=== PATIENT | female | born 1955 | race Caucasian/White ===

== ENCOUNTER 2022-11-21 15:01 | Emergency (ER) | payer OTHER ==
--- OUTSIDE RECORDS SUMMARY | 2022-11-21 15:04 | XMS REPORT | Continuity of Care Document ---
:1955 Author Organization [facility] Address [address] [place] [id number] Care Team Providers Name Role Phone [email or web address]_Alden_J Attending Clinician Unavailable GC_MAXIMINO_Alden_J Attending Clinician Unavailable [email or web address]_Alden_J Admitting Clinician Unavailable MAX_[email or web address]_J Admitting Clinician Unavailable Payers Payer Name Policy Type Policy Number Effective Date Expiration Date [employer] [id number] (MEDICARE REPLACEMENT/[employer] GE - PPO) MEDICARE B-[place]: [id number] 2021 Applicasa 00:00:00 AETNA [id number] Problems Condition Condition Condition Status Onset Resolution Last Treating Co mments Source Name Details Category Date Date Treatment Clinician Date 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 Clinician (SIG) Name Name celecoxib celecoxib No celecoxib [facility] 200 mg 200 mg 200 mg Medical capsule capsule capsule clotrimazol clotrimazol No clotrimazo [facility] e 1 % e 1 % le 1 % Medical vaginal vaginal vaginal cream cream cream INSERT ONE INSERT ONE INSERT ONE APPLICATORF APPLICATORF APPLICATOR UL UL FUL VAGINALLY VAGINALLY VAGINALLY AT BEDTIME AT BEDTIME AT BEDTIME EVERY NIGHT EVERY NIGHT EVERY AT BEDTIME AT BEDTIME NIGHT AT BEDTIME cyclobenzap cyclobenzap No cyclobenza [facility] rine 5 mg rine 5 mg rosemary 5 mg Medical tablet TAKE tablet TAKE tablet 1 TABLET BY 1 TABLET BY TAKE 1 MOUTH THREE MOUTH THREE TABLET BY TIMES DAILY TIMES DAILY MOUTH NEEDED NEEDED THREE FOR MUSCLE FOR MUSCLE TIMES SPASM SPASM DAILY NEEDED FOR MUSCLE SPASM Eliquis 5 Eliquis 5 No Eliquis 5 [facility] mg tablet mg tablet mg tablet Medical TAKE 1 TAKE 1 TAKE 1 TABLET BY TABLET BY TABLET BY MOUTH TWICE MOUTH TWICE MOUTH DAILY DAILY TWICE DAILY Eliquis Eliquis No Eliquis [facility] DVT-PE DVT-PE DVT-PE Medical Treatment Treatment Treatment 30-Day 30-Day 30-Day Starter 5 Starter 5 Starter 5 mg (74 mg (74 mg (74 tablets) in tablets) in tablets) dose pack dose pack in dose FOLLOW FOLLOW pack PACKAGE PACKAGE FOLLOW DIRECTIONS DIRECTIONS PACKAGE DIRECTIONS ergocalcife ergocalcife No ergocalcif [facility] rol rol pantera Medical (vitamin (vitamin (vitamin D2) 1,250 D2) 1,250 D2) 1,250 mcg (50,000 mcg (50,000 mcg unit) unit) (50,000 capsule capsule unit) TAKE 1 TAKE 1 capsule CAPSULE BY CAPSULE BY TAKE 1 MOUTH EVERY MOUTH EVERY CAPSULE BY WEEK ON THE WEEK ON THE MOUTH SAME DAY SAME DAY EVERY WEEK ON THE SAME DAY gabapentin gabapentin No gabapentin [facility] 100 mg 100 mg 100 mg Medical capsule capsule capsule TAKE 1 TAKE 1 TAKE 1 CAPSULE BY CAPSULE BY CAPSULE BY MOUTH TWICE MOUTH TWICE MOUTH DAILY DAILY TWICE DAILY meloxicam meloxicam No meloxicam [facility] 7.5 mg 7.5 mg 7.5 mg Medical tablet TAKE tablet TAKE tablet 1 TABLET BY 1 TABLET BY TAKE 1 MOUTH EVERY MOUTH EVERY TABLET BY DAY DAY MOUTH NEEDED FOR NEEDED FOR EVERY DAY PAIN PAIN NEEDED FOR PAIN nitrofurant nitrofurant No nitrofuran [facility] oin oin toin Medical monohydrate monohydrate monohydrat /macrocryst /macrocryst e/macrocry als 100 mg als 100 mg stals 100 capsule capsule mg capsule TAKE 1 TAKE 1 TAKE 1 CAPSULE BY CAPSULE BY CAPSULE BY MOUTH TWICE MOUTH TWICE MOUTH DAILY DAILY TWICE DAILY ofloxacin ofloxacin No ofloxacin [facility] 0.3 % eye 0.3 % eye 0.3 % eye Medical drops drops drops omeprazole omeprazole No omeprazole [facility] 40 mg 40 mg 40 mg Medical capsule,del capsule,del capsule,de ayed ayed layed release release release TAKE 1 TAKE 1 TAKE 1 CAPSULE BY CAPSULE BY CAPSULE BY MOUTH EVERY MOUTH EVERY MOUTH DAY DAY EVERY DAY phenazopyri phenazopyri No phenazopyr [facility] dine 200 mg dine 200 mg idine 200 Medical tablet TAKE tablet TAKE mg tablet 1 TABLET BY 1 TABLET BY TAKE 1 MOUTH THREE MOUTH THREE TABLET BY TIMES DAILY TIMES DAILY MOUTH THREE TIMES DAILY prednisolon prednisolon No prednisolo [facility] e acetate 1 e acetate 1 ne acetate Medical % eye % eye 1 % eye drops,suspe drops,suspe drops,susp nsion nsion ension INSTILL 1 INSTILL 1 INSTILL 1 DROP INTO DROP INTO DROP INTO LEFT EYE LEFT EYE LEFT EYE THREE TIMES THREE TIMES THREE DAILY FOR 1 DAILY FOR 1 TIMES WEEK THEN WEEK THEN DAILY FOR TWICE DAILY TWICE DAILY 1 WEEK FOR 1 WEEK FOR 1 WEEK THEN TWICE THEN EVERY THEN EVERY DAILY FOR DAY FOR 2 DAY FOR 2 1 WEEK WEEKS WEEKS THEN EVERY DAY FOR 2 WEEKS rabeprazole rabeprazole No rabeprazol [facility] 20 mg 20 mg e 20 mg Medical tablet,nico tablet,nico tablet,del yed release yed release ayed release sucralfate sucralfate No sucralfate [facility] 100 mg/mL 100 mg/mL 100 mg/mL Medical oral oral oral suspension suspension suspension SHAKE WELL SHAKE WELL SHAKE WELL AND TAKE 10 AND TAKE 10 AND TAKE ML BY MOUTH ML BY MOUTH 10 ML BY FOUR TIMES FOUR TIMES MOUTH FOUR DAILY DAILY TIMES BEFORE BEFORE DAILY MEALS MEALS BEFORE MEALS sulfamethox sulfamethox No sulfametho [facility] azole 800 azole 800 xazole 800 Medical mg-trimetho mg-trimetho mg-trimeth prim 160 mg prim 160 mg oprim 160 tablet TAKE tablet TAKE mg tablet 1 TABLET BY 1 TABLET BY TAKE 1 MOUTH TWICE MOUTH TWICE TABLET BY DAILY FOR 7 DAILY FOR 7 MOUTH DAYS DAYS TWICE DAILY FOR 7 DAYS tinidazole tinidazole No 4 Q1D tinidazole [facility] 500 mg 500 mg 500 mg Medical tablet Take tablet Take tablet 4 tablets 4 tablets Take 4 every day every day tablets by oral by oral every day route for 2 route for 2 by oral days. days. route for 2 days. tramadol 50 tramadol 50 No tramadol [facility] mg tablet mg tablet 50 mg Medi garcía TAKE 1 TAKE 1 tablet TABLET BY TABLET BY TAKE 1 MOUTH EVERY MOUTH EVERY TABLET BY 6 HOURS 6 HOURS MOUTH NEEDED NEEDED EVERY 6 HOURS NEEDED Immunizations Ordered Immunization Filled Immunization Date Status Commen ts Source Name Name influenza, influenza, 2017-03-24 Completed [facility] unspecified unspecified 00:00:00 formulation formulation Vital Signs Vital Name Observation Time Observation Value Comments Source BP Diastolic 2022-09-08 00:00:00 74 mm[Hg] [facility] Height 2022-09-08 00:00:00 69 [in_i] [facility] BMI (Body Mass Index) 2022-09-08 00:00:00 21.6 kg/m2 [facility] BP Systolic 2022-09-08 00:00:00 122 mm[Hg] [facility] Body Weight 2022-09-08 00:00:00 146 [lb_av] [facility] Procedures Procedure Date / Time Performed Performing Clinician [facility] e Cholecystectomy 2012-04-14 00:00:00 [facility] (Gallbladder) Back / Spine Surgery 1992-06-15 00:00:00 [facility] Plan of Care Planned Activity Planned Date Details Comments Source Diagnostic Test 2022-09-08 00:00:00 Malonate [facility] Pending [Mass/volume] in Serum [code = 2603-9] Diagnostic Test 2022-09-08 00:00:00 unlisted lab [code = [facility] Pending unlisted lab] Encounters Start End Encounter Admission Attending Care Care Encounter Source Date/Time Date/Time Type Type Clinicians Facility Department ID 2022-09-08 2022-09-08 [facility]:00 00:00:00 [facility] NEPTALI Mobley_ : [address] [place], [address], [place] [address] , Ph. 2022-09-07 2022-09-07 Outpatient GC_SWHAOMC_ PRIV PRIV [id number] [facility] 00:00:00 00:00:00 Rebeca [id number] Medic al 2022-09-07 2022-09-07 Outpatient GC_SWHAOMC_ PRIV PRIV [id number] [facility] 00:00:00 00:00:00 Rebeca [id number] Medic al 2022-09-05 2022-09-05 Outpatient GC_SWHATBIC PRIV PRIV [id number] [facility] 00:00:00 00:00:00 _Alden_Cy [id number] [facility] 2022-09-03 2022-09-03 Outpatient GC_SWHATBIC PRIV PRIV [id number] [facility] 00:00:00 00:00:00 _Alden_Cy [id number] [facility] 2022-08-14 2022-08-14 Outpatient GC_SWHAOMC_ PRIV PRIV [id number] [facility] 00:00:00 00:00:00 Cooper_J [id number] Medic al 2021-11-04 2021-11-04 Outpatient GC_SWHAOMC_ PRIV PRIV [id number] [facility] 05:40:00 05:40:00 Alden_Cy [id number] Medic al 2021-10-30 2021-10-30 Outpatient GC_SWHAOMC_ PRIV PRIV [id number] [facility] 12:51:00 12:51:00 Alden_Cy [id number] Medic al 2021-10-14 2021-10-14 Outpatient GC_SWHAOMC_ PRIV PRIV [id number] [facility] 01:59:00 01:59:00 Cooper_J [id number] Medic al 2021-05-27 2021-05-27 Outpatient GC_SWHATBIC PRIV PRIV [id number] [facility] 04:53:00 04:53:00 _Alden_Cy [id number] [facility] 2021-05-24 2021-05-24 Outpatient GC_SWHATBIC PRIV PRIV [id number] [facility] 01:16:00 01:16:00 _Cooper_J [id number] [facility] 2017-08-15 2017-08-15 Outpatient GC_SWHAOMC_ PRIV PRIV [id number] [facility] 05:01:00 05:01:00 Alden_J [id number] Medic al Results This patient has no known results.
[2022-11-21] MEDS ORDERED: MORPHINE 4 MG/ML SYR ONE ×3 (16:12→20:29)
[2022-11-21 16:19] LABS: Absolute Lymphocytes (CBC) 0.8 K/uL (0.7-4.9); Hematocrit 30.8 % (36.0-45.0); Lymphocytes % 2.6 % (15.3-44.8); MCV 91.2 fL (80-100); MPV 8.4 fL (7.6-11.3); RBC Red Blood Cell Count 3.38 M/uL (3.86-4.86)
[2022-11-21] MEDS ORDERED: ONDANSETRON 4 MG/2 ML VIAL ONE (16:19)
[2022-11-21 16:34] LABS: Albumin 2.6 g/dL (3.4-5.0); Bilirubin Total 0.7 mg/dL (0.2-1.0); Potassium 3.9 mEq/L (3.5-5.1); Protein, Total 7.5 g/dL (6.4-8.2)
--- NOTE | 2022-11-21 16:46 | EDPHYS ---
Physician Documentation [facility] Name: Christianne Jacobson Age: 67 yrs Sex: Female : 1955 Arrival Date: 11/21/2022 Time: 15:01 Bed 16 Private MD: ED Physician Deon Quintero HPI: 11/21 16:02 This 67 yrs old Female presents to ER via Wheelchair with complaints of Abdominal Pain, ms3 Vaginal Bleeding. 16:02 67-year-old female with past medical history of DVT presents for abdominal pain that ms3 has been ongoing for 3 to 4 months. Patient states she is also [facility] and vaginal bleeding. Patient states she began vomiting last night. Patient states her abdominal pain is a 10/10 located in the lower abdomen. Patient denies alleviating or inciting factors. Historical: - Allergies: 15:08 PENICILLINS; ld1 - Home Meds: 15:08 Eliquis 5 mg oral tablet 2 times per day [Active]; ld1 - PMHx: 15:08 DVT; ld1 - PSHx: 15:08 Cholecystectomy; ld1 - Immunization history:: Adult Immunizations up to date, Client reports receiving the 2nd dose of the Covid vaccine. - Social history:: Smoking status: Patient denies any tobacco usage or history of. Patient/guardian denies using alcohol. ROS: 16:02 Constitutional: Negative for fever, and chills. Eyes: Negative for injury, pain, ms3 redness, and discharge, Neck: Negative for injury, pain, and swelling, Cardiovascular: Negative for chest pain, and palpitations. Respiratory: Negative for shortness of breath, cough, wheezing, and pleuritic chest pain. 16:02 MS/Extremity: Negative for injury and deformity, Skin: Negative for injury, rash, and discoloration. 16:02 Abdomen/GI: Positive for abdominal pain, nausea, vomiting, and diarrhea. 16:02 All other systems are negative. Exam: 16:02 Constitutional: This is a well developed, well nourished patient who is awake, alert, ms3 and in no acute distress. Head/Face: Normocephalic, atraumatic. Neck: Trachea midline, no cervical lymphadenopathy. Supple, full range of motion without nuchal rigidity, or vertebral point tenderness. No Meningismus. Chest/axilla: Normal chest wall appearance and motion. Nontender with no deformity. Cardiovascular: Regular rate and rhythm with a normal S1 and S2. No gallops, murmurs, or rubs. Normal PMI, no JVD. No pulse deficits. Respiratory: Lungs have equal breath sounds bilaterally, clear to auscultation and percussion. No rales, rhonchi or wheezes noted. No increased work of breathing, no retractions or nasal flaring. 16:02 Abdomen/GI: Inspection: abdomen appears normal, Bowel sounds: normal, in all quadrants, Palpation: moderate abdominal tenderness, in the right lower quadrant and left lower quadrant. 18:52 ECG was reviewed by the Attending Physician. ms3 Vital Signs: 15:08 Pulse 95; Resp 22; Temp 98.2(TE); Pulse Ox 98% on R/A; Weight 58.97 kg; Height 5 ft. 9 ld1 in. ; Pain 10/10; 15:12 BP 250 / 239; ld1 16:00 BP 115 / 59; Pulse 106; Resp 20; Temp 99.9(T); Pulse Ox 98% on R/A; ko1 16:15 BP 113 / 68; Pulse 110; Resp 22; Pulse Ox 99% ; ko1 16:30 BP 105 / 63; Pulse 108; Resp 19; Pulse Ox 97% ; ko1 16:45 BP 108 / 68; Pulse 116; Resp 24; Pulse Ox 98% ; ko1 17:30 BP 112 / 97; Pulse 108; Resp 26; Pulse Ox 100% ; ko1 19:30 BP 105 / 70; Pulse 108; Resp 21 S; Temp 99.1(O); Pulse Ox 100% on R/A; ha1 20:42 BP 104 / 56; Pulse 106; Resp 21 S; Pulse Ox 97% ; ha1 15:08 Body Mass Index 19.20 (58.97 kg, 175.26 cm) ld1 15:08 Pain Scale: Adult ld1 MDM: 15:12 Patient medically screened. ms3 16:02 Differential diagnosis: Neoplasm nonspecific abdominal pain, Diverticulitis. ms3 16:43 ED course: Patient with elevated WBC and LA >4. No source of infection at this time.. ms3 18:27 Management of patient was discussed with the following: Roll Forming Machine Set Up Mechanic: Ricardo Rivas. ED ms3 course: Discussed case with Ricardo Rivas and he will consult on patient.. 18:35 Data reviewed: vital signs, nurses notes, lab test result(s), radiologic studies, and ms3 as a result, I will transfer. Consideration of Admission/Observation Patient transferred. I considered the following discharge prescriptions or medication management in the emergency department Medications were administered in the Emergency Department. See MAR. Independent interpretation of the following test(s) in the Emergency Department CT Scan: My interpretation is CTA Abd/Pelvis images reviewed by me do not show occlusion or free air. Historians other than the Patient: Patient's niece. Counseling: I had a detailed discussion with the patient and/or guardian regarding: the historical points, exam findings, and any diagnostic results supporting the discharge/admit diagnosis, lab results, radiology results, the need to transfer to another facility. Response to treatment: the patient's symptoms have mildly improved after treatment, and as a result, I will transfer patient. 18:47 Management of patient was discussed with the following: Hospitalist: Discussed case ms3 with Dr Barajas and she accepts patient to IMU. 11/21 15:21 Order name: Urinalysis w/ reflexes ms3 11/21 16:24 Order name: CBC with Automated Diff; Complete Time: 17:32 EDMS 11/21 16:25 Order name: Comprehensive Metabolic Panel; Complete Time: 16:43 EDMS 11/21 16:25 Order name: Lipase; Complete Time: 16:43 EDMS 11/21 16:25 Order name: Lactate w/ 2H reflex if indic.; Complete Time: 16:43 EDMS 11/21 16:46 Order name: Blood Culture Adult (2) ms3 11/21 16:46 Order name: Protime (+inr); Complete Time: 18:26 ms3 11/21 16:46 Order name: Ptt, Activated; Complete Time: 18:26 ms3 11/21 17:07 Order name: Manual Differential; Complete Time: 17:32 EDMS 11/21 18:48 Order name: Urine Culture EDMS 11/21 16:51 Order name: Pelvis Complete; Complete Time: 17:59 EDMS 11/21 16:56 Order name: CT Abdomen - Angio: CTA abdomen and pelvis; Complete Time: 18:10 ms3 11/21 17:04 Order name: Pelvis Angio; Complete Time: 17:59 EDMS 11/21 16:46 Order name: EKG; Complete Time: 16:56 ms3 11/21 15:21 Order name: IV Saline Lock; Complete Time: 16:12 ms3 11/21 15:21 Order name: Labs collected and sent; Complete Time: 16:12 ms3 11/21 16:46 Order name: Accucheck; Complete Time: 16:58 ms3 11/21 16:46 Order name: Cardiac monitoring; Complete Time: 16:55 ms3 11/21 16:46 Order name: EKG - Nurse/Tech; Complete Time: 18:12 ms3 11/21 16:46 Order name: IV Saline Lock - Large Bore; Complete Time: 16:55 ms3 11/21 16:46 Order name: O2 Per Protocol; Complete Time: 16:55 ms3 11/21 16:46 Order name: O2 Sat Monitoring; Complete Time: 16:55 ms3 11/21 16:46 Order name: Vital Signs; Complete Time: 16:55 ms3 11/21 17:53 Order name: Labs - recollect needed: BLUE TOP only; Complete Time: 18:42 ss EC:52 Rate is 101 beats/min. Rhythm is regular. QRS [place] is Normal. [place] interval is normal. ms3 QRS interval is normal. Clinical impression: Sinus tachycardia. Interpreted by me. Reviewed by me. Administered Medications: 16:16 Drug: morphine IVP or IV 4 mg Route: IVP; Infused Over: 4 mins; Site: left forearm; ko1 18:55 Follow up: Response: No adverse reaction ko1 17:26 Drug: Lactated Ringers Solution IV 1000 ml Route: IV; Rate: bolus; Site: left forearm; ko1 18:11 Drug: Cefepime IVPB 1 grams Route: IVPB; Rate: 200 ml/hr; Infused Over: 30 mins; Site: ko1 left forearm; 18:45 Follow up: IV Status: Completed infusion; IV Intake: 100ml ko1 18:43 Drug: vancoMYCIN IVPB 1 grams Route: IVPB; Infused Over: 2 hrs; Site: left forearm; ko1 20:31 Drug: morphine IVP or IV 4 mg Route: IVP; Infused Over: 4 mins; Site: left forearm; ha1 20:42 Follow up: Response: No adverse reaction; Pain is decreased; RASS: Alert and Calm (0) ha1 Disposition Summary: 11/21/22 16:46 Transfer Ordered Transfer Location: Other Acute Care Facility ms3 Reason: Higher level of care ms3 Condition: Stable ms3 Problem: new ms3 Symptoms: are unchanged ms3 Accepting Physician: (11/21/22 20:44) ha1 Diagnosis - Abdominal pain, Generalized ms3 Forms: - Medication Reconciliation Form ms3 - SBAR form ms3 Signatures: Dispatcher [employer] EDMS Darian Mooney, LUIS PA eviem Anneliese Garcia, RN RN ss Angel Flor, POWER LINE INSTALLER-C POWER LINE INSTALLER-Cla1 Deon Quintero, DO DO ms3 Vicenta Quintero RN RN ld1 Carli Almanzar RN RN ha1 Christiana Almanzar, RN RN ko1 Corrections: (The following items were deleted from the chart) 16:58 16:33 Abdomen ordered. EDMS EDMS 17:00 16:54 Pelvis Complete+US.RAD.BRZ ordered. EDMS EDMS 17:04 16:53 Abdomen Pelvis W Con+CT.RAD.BRZ ordered. EDMS EDMS 18:43 16:53 CBC+H.LAB.BRZ ordered. EDMS EDMS 18:43 16:53 COMPREHENSIVE METABOLIC PANEL+C.LAB.BRZ ordered. EDMS EDMS 18:43 16:53 LIPASE+C.LAB.BRZ ordered. EDMS EDMS 18:43 16:54 LACTATE+C.LAB.BRZ ordered. EDMS EDMS 20:44 16:46 ms3 ha1
--- NOTE | 2022-11-21 16:46 | ER ---
Nurse's Notes [facility] Name: Christianne Jacobson Age: 67 yrs Sex: Female : 1955 Arrival Date: 11/21/2022 Time: 15:01 Bed 16 Private MD: Diagnosis: Abdominal pain, Generalized Presentation: 11/21 15:08 Chief complaint: Patient states: Constipation, vaginal bleeding, abdominal pain, ld1 vomiting X 1 day. Coronavirus screen: At this time, the client does not indicate any symptoms associated with coronavirus-19. Ebola Screen: No symptoms or risks identified at this time. Initial Sepsis Screen: Does the patient meet any 2 criteria? No. Patient's initial sepsis screen is negative. Does the patient have a suspected source of infection? No. Patient's initial sepsis screen is negative. Risk Assessment: Do you want to hurt yourself or someone else? Patient reports no desire to harm self or others. Onset of symptoms was November 21, 2022. 15:08 Method Of Arrival: Wheelchair ld1 15:08 Acuity: NISH 3 ld1 Triage Assessment: 15:08 General: Appears in no apparent distress. uncomfortable, Behavior is cooperative, ld1 anxious. Pain: Complains of pain in left lower quadrant Pain does not radiate. Pain currently is 10 out of 10 on a pain scale. Quality of pain is described as throbbing. EENT: No signs and/or symptoms were reported regarding the EENT system. Neuro: Level of Consciousness is awake, alert, obeys commands, Oriented to person, place, time, situation. Cardiovascular: Capillary refill < 3 seconds Patient's skin is warm and dry. Respiratory: Airway is patent Respiratory effort is even, labored. GI: Abdomen is flat, non-distended, Reports lower abdominal pain, nausea, vomiting. GI: Reports constipation. : No signs and/or symptoms were reported regarding the genitourinary system. Derm: No signs and/or symptoms reported regarding the dermatologic system. Musculoskeletal: No signs and/or symptoms reported regarding the musculoskeletal system. Historical: - Allergies: 15:08 PENICILLINS; ld1 - Home Meds: 15:08 Eliquis 5 mg oral tablet 2 times per day [Active]; ld1 - PMHx: 15:08 DVT; ld1 - PSHx: 15:08 Cholecystectomy; ld1 - Immunization history:: Adult Immunizations up to date, Client reports receiving the 2nd dose of the Covid vaccine. - Social history:: Smoking status: Patient denies any tobacco usage or history of. Patient/guardian denies using alcohol. Screenin:30 [facility] ED Fall Risk Assessment (Adult) History of falling in the last 3 months, ko1 including since admission No falls in past 3 months (0 pts) Confusion or Disorientation No (0 pts) Intoxicated or Sedated No (0 pts) Impaired Gait No (0 pts) Mobility Assist Device Used No (0 pt) Altered Elimination No (0 pt) Score/Fall Risk Level 0 - 2 = Low Risk Oriented to surroundings, Maintained a safe environment, Educated pt \T\ family on fall prevention, incl call for assistance when getting out of bed, Assessed \T\ reinforced patient's understanding of fall precautions, Provided non-skid footwear, Hourly rounding (assess needs \T\ fall precautionary measures) done, Used ambulatory aids as needed (educated on \T\ assisted with), Used gait belt as appropriate. Abuse screen: Denies threats or abuse. Denies injuries from another. Nutritional screening: No deficits noted. Tuberculosis screening: No symptoms or risk factors identified. Assessment: 16:00 General: Appears distressed, uncomfortable, ill, Behavior is cooperative, appropriate ko1 for age, anxious, restless. Pain: Complains of pain in lumbar area, left low back and right low back. Neuro: No deficits noted. Cardiovascular: No deficits noted. Respiratory: Respiratory effort is labored, Respiratory pattern is tachypnea. GI: Bowel sounds present X 4 quads. Abd is soft and non tender X 4 quads. : No deficits noted. EENT: No deficits noted. Derm: No deficits noted. Musculoskeletal: No deficits noted. 19:20 General: Appears uncomfortable, Behavior is anxious. Pain: Complains of pain in abdomen ha1 Pain does not radiate. Pain currently is 8 out of 10 on a pain scale. Quality of pain is described as crampy. Neuro: Level of Consciousness is awake, alert, obeys commands, Oriented to person, place, time, situation. Respiratory: Respiratory effort is even, labored, Respiratory pattern is regular, tachypnea. GI: Bowel sounds present X 4 quads. Abd is soft Abdomen is tender to palpation X 4 quads. Reports lower abdominal pain. Musculoskeletal: Circulation, motion, and sensation intact. 20:00 Reassessment: Patient and/or family updated on plan of care and expected duration. Pain ha1 level reassessed. awaiting on EMS. requesting pain medication. Notified Dr. Blum. pain 01/22. 20:18 Reassessment: report given to KALEY Plummer. ha1 Vital Signs: 15:08 Pulse 95; Resp 22; Temp 98.2(TE); Pulse Ox 98% on R/A; Weight 58.97 kg; Height 5 ft. 9 ld1 in. ; Pain 03/24; 15:12 BP 250 / 239; ld1 16:00 BP 115 / 59; Pulse 106; Resp 20; Temp 99.9(T); Pulse Ox 98% on R/A; ko1 16:15 BP 113 / 68; Pulse 110; Resp 22; Pulse Ox 99% ; ko1 16:30 BP 105 / 63; Pulse 108; Resp 19; Pulse Ox 97% ; ko1 16:45 BP 108 / 68; Pulse 116; Resp 24; Pulse Ox 98% ; ko1 17:30 BP 112 / 97; Pulse 108; Resp 26; Pulse Ox 100% ; ko1 19:30 BP 105 / 70; Pulse 108; Resp 21 S; Temp 99.1(O); Pulse Ox 100% on R/A; ha1 20:42 BP 104 / 56; Pulse 106; Resp 21 S; Pulse Ox 97% ; ha1 15:08 Body Mass Index 19.20 (58.97 kg, 175.26 cm) ld1 15:08 Pain Scale: Adult ld1 ED Course: 15:03 Patient arrived in ED. im 15:08 Arm band placed on right wrist. ld1 15:11 Triage completed. ld1 15:12 Deon Quintero DO is Attending Physician. ms3 16:00 Christiana Almanzar, KALEY is Primary Nurse. ko1 16:12 Inserted saline lock: 20 gauge in left forearm, using aseptic technique. Blood zm collected. 16:12 Initial lab(s) drawn, by me, sent to lab. zm 16:33 Lipase Sent. ko1 16:33 Lactate w/ 2H reflex if indic. Sent. ko1 16:33 Comprehensive Metabolic Panel Sent. ko1 17:16 CT Abdomen - Angio: CTA abdomen and pelvis In Process Unspecified. EDMS 17:16 Pelvis Angio In Process Unspecified. EDMS 17:30 Patient has correct armband on for positive identification. Placed in gown. Bed in low ko1 position. Call light in reach. Side rails up X2. Client placed on continuous cardiac and pulse oximetry monitoring. NIBP monitoring applied. thermodynamicist on. Door closed. Noise minimized. Lights dimmed. Warm blanket given. 17:32 Pelvis Complete In Process Unspecified. EDMS 18:05 Blood Culture Adult (2) Sent. ko1 18:05 Protime (+inr) Sent. ko1 18:05 Ptt, Activated Sent. ko1 18:08 initiated transfer with Bob Desir from the [facility]. eb 18:21 EKG done, by ED staff. aw1 18:[address] Reji Alexandre with the [employer] oncologist styrene dehydration reactor operator for [facility] with eb Dr. Quintero for patient transfer consultation. 18:43 Urinalysis w/ reflexes Sent. ko1 18:55 Urine Culture Sent. ko1 20:42 No provider procedures requiring assistance completed. Patient transferred, IV remains ha1 in place. Administered Medications: 16:16 Drug: morphine IVP or IV 4 mg Route: IVP; Infused Over: 4 mins; Site: left forearm; ko1 18:55 Follow up: Response: No adverse reaction ko1 17:26 Drug: Lactated Ringers Solution IV 1000 ml Route: IV; Rate: bolus; Site: left forearm; ko1 18:11 Drug: Cefepime IVPB 1 grams Route: IVPB; Rate: 200 ml/hr; Infused Over: 30 mins; Site: ko1 left forearm; 18:45 Follow up: IV Status: Completed infusion; IV Intake: 100ml ko1 18:43 Drug: vancoMYCIN IVPB 1 grams Route: IVPB; Infused Over: 2 hrs; Site: left forearm; ko1 20:31 Drug: morphine IVP or IV 4 mg Route: IVP; Infused Over: 4 mins; Site: left forearm; ha1 20:42 Follow up: Response: No adverse reaction; Pain is decreased; RASS: Alert and Calm (0) ha1 Medication: 17:30 VIS not applicable for this client. ko1 Intake: 18:45 IV: 100ml; Total: 100ml. ko1 Outcome: 16:46 ER care complete, transfer ordered by . ms3 20:43 Transferred by ground EMS to [facility], [facility] [place]: transferred by [facility] ambulance 20:43 Condition: stable 20:44 Patient left the ED. ha1 Signatures: Dispatcher [employer] EDMS Kayla Flynn, Deon, DO ms3 Vicenta Quintero, RN RN ld1 Teena Sharma Heidy, RN RN ha1 Christiana Almanzar RN RN ko1 Ellie Kaur, [place] aw1 Corrections: (The following items were deleted from the chart) 18:43 16:55 CBC+H.LAB.BRZ drawn and sent. ko1 EDMS 18:43 16:55 COMPREHENSIVE METABOLIC PANEL+C.LAB.BRZ drawn and sent. ko EDMS 18:43 16:55 LIPASE+C.LAB.BRZ drawn and sent. ko EDMS 18:43 16:55 LACTATE+C.LAB.BRZ drawn and sent. ko EDMS 18:43 17:05 CBC+H.LAB.BRZ drawn and sent. ko1 EDMS 18:43 17:05 COMPREHENSIVE METABOLIC PANEL+C.LAB.BRZ drawn and sent. ko1 EDMS 18:43 17:05 LIPASE+C.LAB.BRZ drawn and sent. ko1 EDMS 18:43 17:05 LACTATE+C.LAB.BRZ drawn and sent. ko EDMS
[2022-11-21 17:06] LABS: Blood Morphology Comment NOT SEEN (NOT SEEN); Platelet Estimate ADEQ
[2022-11-21] MEDS ORDERED: Ringers Lactate 1,000 ML IV ONE (17:14)
--- NOTE | 2022-11-21 17:35 | RAD REPORT ---
EXAM DESCRIPTION: CTAbdomen Angio11/21/2022 5:14 pm CLINICAL HISTORY: Abdominal pain COMPARISON: None TECHNIQUE: 95 cc Isovue [address] angiogram of the abdomen obtained. 3D MIP reconstruction performed All CT scans are performed using dose optimization technique as appropriate and may include automated exposure control or mA/KV adjustment according to patient size. FINDINGS: Mild calcified plaque celiac artery. Superior mesenteric artery normal VIVIANA normal Minimal calcified plaque abdominal aorta Renal arteries normal Marked left hydronephrosis. Marked dilatation proximal and mid left ureter. Moderate compression deformity T12 vertebral body probably chronic IMPRESSION: Mild calcified plaque celiac artery not significant Marked left hydronephrosis. Marked dilatation proximal and mid left ureter. Three for [address] ang iogram report for distal left ureter findings
--- NOTE | 2022-11-21 17:44 | RAD REPORT ---
EXAM DESCRIPTION: CTPelvis Angio11/21/2022 5:14 pm CLINICAL HISTORY: Abdominal pain COMPARISON: None TECHNIQUE: Ninety-five cc Isovue [address] angiogram of the pelvis obta ined. 3D MIP reconstruction performed All CT scans are performed using dose optimization technique as appropriate and may include automated exposure control or mA/KV adjustment according to patient size. FINDINGS: Common iliac, internal and external iliac and visualized femoral arteries bilaterally nor mal. Marked dilatation distal left ureter. There is an abrupt transition of caliber as the ureter abuts th e left aspect of the cervix. The cervix is inhomogeneous and enlarged. It contains several air bubbles. The endometrial stripe is thickened containing fluid. Left ovary is partially calcified measuring 2.7 centimeters. Trace amount of free fluid. IMPRESSION: Pelvic arteries normal Marked dilatation of the left ureter. There is an abrupt transition of caliber as the ureter abuts th e left aspect of the cervix. The cervix is enlarged and inhomogeneous. Neoplasm is suspected. There may be extension into the uter us. Superior aspect of the vagina is also inhomogeneous which may indicate tumor extension Partially calcified left ovary presumably benign. This should be monitored on subsequent exam
--- NOTE | 2022-11-21 17:47 | RAD REPORT ---
EXAM DESCRIPTION: US - Pelvis Complete - 11/21/2022 5:31 pm CLINICAL HISTORY: Abdominal pain. Vaginal bleeding FINDINGS: The uterus measures 10 x 5 x 7 centimeters. The endometrial stripe is thickened measuring 11 millimeters. It is heterogeneous. The cervix is enlarged and inhomogeneous. It contains small amount of air. Left ovary measures 2.7 centimeters and is partially calcified. Right ovary not seen. Right adnexal are unremarkable. No significant fluid IMPRESSION: Cervix is enlarged and inhomogeneous which may indicate neoplasm. Endometrial stripe is thickened and heterogeneous which may indicate tumor extension into the uterus.
[2022-11-21] MEDS ORDERED: NA CHLORIDE 0.9% 250 ML ONE (18:00)
[2022-11-21] MEDS ORDERED: VANCOMYCIN 1 GM/VIAL ONE (18:00)
[2022-11-21] MEDS ORDERED: NA CHLORIDE 0.9% 100 ML ONE (18:01)
[2022-11-21] MEDS ORDERED: CEFEPIME 1 GM/VIAL ONE (18:01)
[2022-11-21 18:16] LABS: Specific Gravity > 1.030 (1.005-1.030); Urine Bacteria None Seen /HPF (<20); Urine Bilirubin NEGATIVE (Negative); Urine Blood 3+ (Negative); Urine Clarity Turbid (Clear); Urine Color Yellow (Yellow); Urine Glucose NEGATIVE (Negative); Urine Mucus Slight /HPF (None Seen); Urine Protein 1+ (Negative); Urine RBC 21-50 /HPF (None Seen); Urine Urobilinogen Normal (Normal); Urine WBC Clump Rare /HPF (None Seen); Urine pH 6.5 (5.0-7.0)
[2022-11-21 18:20] LABS: Protime INR 1.57
[2022-11-21 21:15] VITALS: TEMP 99.1
[2022-11-21 21:17] VITALS: BP 104/56; O2SAT 97
--- NOTE | 2022-11-24 12:09 | EKG ---
Test Date: 2022-11-21 Test Time: 18:17:04 Retirement Specialist: RUDY MEASUREMENT RESULTS: Intervals: Rate: 101 AK: 118 QRSD: 72 QT: 448 QTc: 580 [place]: P: 15 AK: 118 QRS: 77 T: 79 INTERPRETIVE STATEMENTS: Sinus tachycardia Otherwise normal ECG No previous ECG available for comparison Electronically Signed On 11-24-22 12:01:23 CDT by Hosea Ovalle
== END 2022-11-21 20:44 ==
LOC: ER 15:01
DX: R10.84 Generalized abdominal pain (principal); R11.2 Nausea with vomiting, unspecified; Z86.718 Personal history of other venous thrombosis and embolism; Z79.01 Long term (current) use of anticoagulants
CPT/HCPCS: 96365; 93005; 87040 ×2; 87088; 85025; 81001; 87086; 36415; 87205 ×2; 85610; 83605; 85730; 83690; 80053; 72191; 74175; 76856; 96375; 99285; Q9967; J2405; J7120; J7050; J0692

== ENCOUNTER 2024-06-03 17:53 | Inpatient (IN) | payer OTHER ==
--- OUTSIDE RECORDS SUMMARY | 2024-06-03 17:57 | XMS REPORT | Clinical Summary ---
Author Name Unknown Organization [facility] Address [address] [place] [address] Care Team Providers Care Olive Knocker Name Role Phone Ana Munoz MD Primary Care Provider Kaylen Atkins PLAY WRITER Unavailable [phone] Reji Alexandre MD Unavailable Carleen Cuello RN Unavailable [phone] Mateus Reyes MD Primary Care Provider [phone] Haim Man RN Unavailable [phone] Diana Joe RN Unavailable Allergies Active Allergy Reactions Criticality Noted Date Comments Penicillins Swelling,Rash Low 03/07/2024 Medications apixaban (ELIQUIS) 5 mg tablet Take 1 tablet (5 mg) by mouth. 4 Active Bifidobacterium infantis (ALIGN ORAL) Align Active gabapentin (NEURONTIN) 300 mg capsule Take 1 capsule (300 mg) by mouth. 4 Active cranberry fruit concentrate (AZO CRANBERRY ORAL) Take by mouth. Active multivitamin with minerals tablet Take by mouth. Activ e ergocalciferol (DRISDOL) 50,000 units capsule TAKE 1 CAPSULE BY MOUTH EVERY WEEK ON THE SAME DAY Active lidocaine-priloc mary jo (EMLA) 2.5-2.5% cream Apply topically to affected area(s). 4 02/11/20 25 Active magnesium oxide (MAOX) 400 mg tablet Take 1 tablet (400 mg) by mouth as needed. Active ondansetron (ZOFRAN) 8 mg tablet Take 1 tablet (8 mg) by mouth. 4 02/11/20 25 Active omeprazole (PriLOSEC) 40 MG capsule as needed. Active acetaminophen (TYLENOL) 500 mg tablet Take 2 tablets (1,000 mg) by mouth. Active calcium carbonate (OS-IZABEL) 600 mg calcium (1,500 mg) tablet Take 1 tablet (600 mg) by mouth. Active Active Problems Problem Noted Date Diagnosed Date Squamous cell carcinoma of cervix 03/07/2024 Cancer Staging:Clinical stage from 12/09/2022:Stage IIIB(Recurrent) - Signed by Rosalia Callahan APRN on 03/07/2024 Assessment & Plan (03/07/2024 3:06 PM CDT): Dr. Reyes discussed the pathology, natural history of disease process, prognosis, and treatment options. Recommended adding Bevacizumab to current regimen. Treatment recommendation sheet provided. She will return after 3 cycles for treatment planning with imaging. Baseline labs today. Secondary malignant neoplasm of lung 03/07/2024 Encounters Date Type Department Care Team Description 04/14/2024 Telephone [facility] [address] [place] [address] [address] [place] [address] Diana Joe, RN Nurse Navigation 03/10/2024 Telephone [facility] [address] [place] [address], 6th [place] [address] Diana Joe, RN post first visit call 03/08/2024 Telephone [facility] [address] [place] [address] [place] [address] Michelle Senior RN Follow-up 03/07/2024 2:00 PM CDT - 03/07/2024 11:59 PM CDT Hospital Encounter [facility] [address] [place] [address], 8th [place] [address] Mateus Reyes MD Kochuponganal, Jyothi A, RN Discharge Disposition: Home 03/07/2024 1:15 PM CDT - 03/07/2024 1:59 PM CDT Hospital Encounter Diagnostic Laboratory Center [address] [place] [address] Rosalia CallahanZAID Squamous cell carcinoma of cervix Discharge Disposition: Home 03/07/2024 11:00 AM CDT Office Visit [facility] [address] [place] [address] [place] [address] Mateus Reyes MD Squamous cell carcinoma of cervix (Primary Dx); Secondary malignant neoplasm of unspecified lung 03/07/2024 Travel 03/02/2024 Telephone [facility] [address] [place] [address] Haim Man RN Nurse Navigation (Plan for the day) 02/29/2024 1:00 PM CDT [facility] PATIENT ACCESS Ana Munoz MD 02/03/2024 Telephone [facility] [address] [place] [address] Haim Man RN New Patient 02/01/2024 Telephone [facility] [address] [place] [address] Carleen Cuello RN Follow-up (2nd attempt to reach out to patient /) 02/01/2024 Lab Requisition [facility] Frank Case MD Masand, Ramya Prakash, MD 01/29/2024 Telephone [facility] [address] [place] [address] Carleen Cuello, KALEY New Patient 01/28/2024 9:25 PM CDT Ancillary [facility] [address] [place] [address] Ana Munoz MD Cancer 01/28/2024 9:20 PM CDT Anc[facility] [address] [place] [address] Ana Munoz MD Cancer 01/28/2024 9:15 PM CDT Anc[facility] [address] [place] [address] Ana Munoz MD Cancer 01/28/2024 9:10 PM CDT Anc[facility] [address] [place] [address] Ana Munoz MD Cancer 01/28/2024 9:05 PM CDT Ancillary Procedure [facility] [address] [place] [address] Ana Munoz MD Cancer 01/28/2024 9:00 PM CDT Anc[facility] [address] [place] [address] Ana Munoz MD Cancer 01/28/2024 8:55 PM CDT Anc[facility] [address] [place] [address] Ana Munoz MD Cancer 01/28/2024 8:50 PM CDT Anc[facility] [address] [place] [address] Ana Munoz MD Cancer 01/28/2024 8:45 PM CDT Anc[facility] [address] [place] [address] Ana Munoz MD Cancer 01/28/2024 8:40 PM CDT Anc[facility] [address] [place] [address] Ana Munoz MD Cancer 01/28/2024 8:35 PM CDT [facility] [address] [place] [address] Ana Munoz MD Cancer 01/28/2024 8:30 PM CDT Anc[facility] [address] [place] [address] Ana Munoz MD Cancer 01/28/2024 8:25 PM CDT Anc[facility] [address] [place] [address] Ana Munoz MD Cancer 01/28/2024 8:20 PM CDT Anc[facility] [address] [place] [address] Ana Munoz MD Cancer 01/28/2024 8:15 PM CDT Ancillary [facility] [address] [place] [address] Ana Munoz MD Cancer 01/28/2024 8:10 PM CDT Ancillary [facility] [address] [place] [address] Ana Munoz MD Cancer 01/28/2024 8:05 PM CDT Ancillary [facility] [address] [place] [address] Ana Munoz MD Cancer 01/28/2024 8:00 PM CDT Ancillary Procedure [facility] [address] [place] [address] Ana Munoz MD Cancer after 06/04/2023 Surgical History Surgery Date Site/Laterality Comments BACK SURGERY 06/15/1992 - 06/14/1993 LAPAROSCOPIC CHOLECYSTECOMY 06/15/2011 - 06/14/2012 EYE SURGERY 06/15/2021 - 06/14/2022 FLEXIBLE SIGMOIDOSCOPY 12/13/2022 - 01/12/2023 Medical History Medical History Date Comments Neuropathy Pulmonary embolism 2010 Cervical cancer Gluten intolerance Osteopenia Deep venous thrombosis 2022 Family History Medical History Relation Name Comments Breast cancer Cousin Pancreatic cancer Maternal Cousin Lung cancer Maternal Uncle Relation Name Status Comments Cousin Maternal Cousin Maternal Uncle Social History Tobacco Use Types Packs/Day Years Used Date Smoking Tobacco: Never Smokeless Tobacco: Never Tobacco Cessation:Counseling Given: Not Answered Alcohol Use Standard Drinks/Week Comments Not Currently 0 (1 standard drink = 0.6 oz pur e alcohol) Comments No Sex and Gender Information Value Date Recorded Sex Assigned at Not on file Legal Sex Female 10:39 AM CDT Gender Identity Not on file Sexual Orientation Not on file Obstetrics History Para Term AB IAB SAB Ectopic Multiple Livin g Live Births 0 0 0 0 0 0 0 0 0 0 0 Comments Age at Menarche 14 Age at menopause 56 H/O OCP use - none H/O HRT use - none H/O STD - none Age at parity - n/a H/O breast feeding - n/a H/O infertility treatment - no Last pap smear - 08/2022 normal H/O abnormal pap smear - no Last mammogram - 2019 normal Last bone density - 07/2022 osteopenia Last colonoscopy - 2013 normal Last Filed Vital Signs Vital Sign Reading Time Taken Comments Blood Pressure 99/61 03/07/2024 11:21 AM CDT Pulse 93 03/07/2024 11:21 AM CDT Temperature 36.5 C (97.7 F) 03/07/2024 11:20 AM C DT Respiratory Rate 16 03/07/2024 11:21 AM CDT Oxygen Saturation 98% 03/07/2024 11:20 AM CDT Inhaled Oxygen Concentration - - Weight 73.3 kg (161 lb 9.6 oz) 03/07/2024 11:04 AM CDT Height 171 cm (5' 7.32") 03/07/2024 11:04 AM CDT Body Mass Index 25.07 03/07/2024 11:04 AM CDT Plan of Treatment Health Maintenance Due Date Last Done Comments Pneumococcal Vaccine: 65+ Years (1 of 1 - PCV) COVID-19 Vaccine (2 - season) 02/14/202404/2023 Influenza Vaccine (#1) 2024 03/24/2017 Procedures Procedure Name Priority Date/Time Associated Diagnosis Comments .CBC Routine 03/07/2024 1:48 PM CDT Squamous cell carcinoma of cervix ALBUMIN LEVEL Routine 03/07/2024 1:48 PM CDT Squamous cell carcinoma of cervix COMPLETE BLOOD COUNT W/ DIFFERENTIAL Routine 03/07/2024 1:48 PM CDT Squamous cell carcinoma of cervix MAGNESIUM LEVEL Routine 03/07/2024 1:48 PM CDT Squamous cell carcinoma of cervix ELECTROLYTE PANEL Routine 03/07/2024 1:4 8 PM CDT Squamous cell carcinoma of cervix ASPARTATE AMINOTRANSFERASE Routine 03/07/2024 1:48 PM CDT Squamous cell carcinoma of cervix ALANINE AMINOTRANSFERASE Routine 024 1:48 PM CDT Squamous cell carcinoma of cervix FRACTIONATED BILIRUBIN Routine 1:48 PM CDT Squamous cell carcinoma of cervix CREATININE Routine 03/07/2024 1:48 PM CDT Squamous cell carcinoma of cervix BLOOD UREA NITROGEN Routine 03/07/2024 1 :48 PM CDT Squamous cell carcinoma of cervix GLUCOSE, RANDOM Routine 03/07/2024 1:48 PM CDT Squamous cell carcinoma of cervix HEMOGLOBIN A1C Routine 03/07/2024 1:48 PM CDT Squamous cell carcinoma of cervix HIV 1/2 ANTIGEN/ANTIBODY, FOURTH GEN W/RFL Routine 03/07/2024 1:48 PM CDT Squamous cell carcinoma of cervix HEPATITIS B SURFACE ANTIGEN Routine 03/07/2024 1:48 PM CDT Squamous cell carcinoma of cervix HEPATITIS C VIRUS ANTIBODY Routine 03/07/2024 1:48 PM CDT Squamous cell carcinoma of cervix OSI PET CT SKULL TO MID THIGH Routine 01/15/2024 10:28 AM CDT Cancer OSI CT ABDOMEN AND PELVIS Routine 11/23/2023 10:27 AM CDT Cancer OSI NUCLEAR DIAGNOSTIC EXAM Routine 11/23/2023 10:27 AM CDT Cancer OSI INTERVENTIONAL Routine 09/30/2023 10 :27 AM CDT Cancer OSI CT ABDOMEN AND PELVIS Routine 07/22/2023 10:27 AM [employer] Cancer OSI INTERVENTIONAL Routine 2023 10 :27 AM [employer] Cancer OSI US VASCULAR Routine 07/03/2023 10:27 AM [employer] Cancer OSI MRI PELVIS Routine 06/17/2023 10:26 AM [employer] Cancer OSI PET CT SKULL TO MID THIGH Routine 06/05/2023 10:26 AM [employer] Cancer after 06/04/2023 Results * Glucose, Random (03/07/2024 1:48 PM CDT) Glucose Random 105 70 - 199 mg/dL 03/07/2024 2:31 PM CDT [facility] Blood Peripheral blood specimen / Unknown Venipuncture / Unknown 03/07/2024 1:48 PM CDT 03/07/2024 1:57 PM CDT Narrative [facility] - 03/07/2024 2:31 PM CDT Effective 01/09/16, the glucose reference intervals have been updated based on [place] [employer] Diabetes Association guidelines (Standards of Medical Care in Diabetes 2016. Diabetes Care 2016; 39: S13-S22). Fasting blood glucose: Normal: 70-99 mg/dL Impaired fasting glucose (increased risk for diabetes or pre-diabetes): 100-125 mg/dL Diabetes mellitus: >/=126 mg/dL Random blood glucose: Normal: 70-199 mg/dL Note: Random glucose >100 mg/dL is associated with increased risk for diabetes us Rosalia Callahan APRN LAB BLOOD ORDERABLES Final R esult [facility] [address] [place] [address] * HIV 1/2 Antigen/Antibody, Fourth Gen W/RFL (03/07/2024 1:48 PM CDT) HIV Ag/Ab, 4TH Gen NON-REACT LOVE NON-REACT LOVE 03/08/2024 4:57 PM CDT [facility]) Comment: HIV-1 antigen and HIV-1/HIV-2 antibodies were not detected. There is no laboratory evidence of HIV infection. PLEASE NOTE: This information has been disclosed to you from records whose confidentiality may be protected by state law. If your state requires such protection, then the state law prohibits you from making any further disclosure of the information without the specific written consent of the person to whom it pertains, or as otherwise permitted by law. A general authorization for the release of medical or other information is NOT sufficient for this purpose. For additional information please refer to http://education.Klooff/faq/OHX739 (This link is being provided for informational/ educational purposes only.) The performance of this assay has not been clinically validated in patients less than 2 years old. Blood Peripheral blood specimen / Unknown Venipuncture / Unknown 03/07/2024 1:48 PM CDT 03/07/2024 1:57 PM CDT Narrative [facility] ([facility]) - 03/08/2024 4:57 PM CDT Performing Organization Information: [facility] [address] [place] [id number] Marianne Asif us Rosalia Callahan APRN LAB BLOOD ORDERABLES Final R esult [facility]) * (ABNORMAL) .CBC (03/07/2024 1:48 PM CDT) Pathologist [facility] White Blood Cell 4.4 4.1 - 10.5 K/uL 03/07/2024 2:41 PM CDT [facility] Red Blood Cell 3.79(L) 3.99 - 5.46 M/uL 03/07/2024 2:41 PM CDT [facility] Hemoglobin 12.2 12.2 - 15.3 g/dL 03/07/2024 2:41 PM CDT [facility] Hematocrit 36.8 36.4 - 46.8 % 03/07/2024 2:41 PM CDT [facility] Mean Cell Volume 97 82 - 99 fL 03/07/2024 2:41 PM [facility] Mean Cell Hemoglobin 32.2 26.6 - 33.2 pg 03/07/2024 2:41 PM [facility] Mean Cell Hemoglobin Concentration 33.2 31.1 - 35.2 g/dL 03/07/2024 2:41 PM [facility] RDW-SD 48.0 37.5 - 49.7 fL 03/07/2024 2:41 PM [facility] Red Cell Diameter Width 13.4 11.6 - 15.5 % 03/07/2024 2:41 PM [facility] Platelet 134(L) 160 - 397 K/uL 03/07/2024 2:41 PM [facility] Mean Platelet Volume 03/07/2024 2:41 PM [facility] Comment:Result Not Measured INRBC 0.0 0.0 - 0.1 /100 WBC 03/07/2024 2:41 PM [facility] Comment: The INRBC (instrument NRBC) value reflects the enumeration of nucleated red blood cells contained in a 200uL sample of whole blood analyzed by the instrument. This value may differ from the NRBC value reported in a manual differential, which is based on a 100 cell differential. Neutrophil % 82.5(H) 43.2 - 72.7 % 03/07/2024 2:41 PM [facility] Lymphocyte % 12.0(L) 16.8 - 46.2 % 03/07/2024 2:41 PM [facility] Monocyte % 2.1(L) 5.1 - 12.5 % 03/07/2024 2:41 PM [facility] Eosinophil % 1.1 0.4 - 6.3 % 03/07/2024 2:41 PM [facility] Basophil % 0.9 0.2 - 1.4 % 03/07/2024 2:41 PM [facility] IGRE % 1.4 0.1 - 1.5 % 03/07/2024 2:41 PM [facility] Comment:The IGRE% includes M etamyelocytes, Myelocytes and Promyelocytes. Neutrophil Abs 3.59 1.95 - 7.25 K/uL 03/07/2024 2:41 PM CDT [facility] Lymphocyte Abs 0.52(L) 1.01 - 3.24 K/uL 03/07/2024 2:41 PM T [facility] Monocyte Abs 0.09(L) 0.24 - 0.85 K/uL 03/07/2024 2:41 PM CDT [facility] Eosinophil Abs 0.05 0.02 - 0.50 K/uL 03/07/2024 2:41 PM T [facility] Basophil Abs 0.04 0.02 - 0.09 K/uL 03/07/2024 2:41 PM T [facility] IG Abs 0.06 0.01 - 0.12 K/uL 03/07/2024 2:41 PM T [facility] Blood Peripheral blood specimen / Unknown Venipuncture / Unknown 03/07/2024 1:48 PM CDT 03/07/2024 1:57 PM CDT us Rosalia Callahan [employer]PER[employer]PER[employer] LAB BLOOD ORDERABLES Final R esult [facility] [address] [place] [address] * Fractionated Bilirubin (03/07/2024 1:48 PM CDT) Bilirubin Direct <0.2 0.0 - 0.3 mg/dL 03/07/2024 2:31 PM [facility] Comment:Indocyanine Green (I CG) may cause falsely elevated bilirubin results. Total and direct bilirubin must not be measured from samples containing indocyanine green. Bilirubin Indirect 2023 2:31 PM [facility] Comment:Unable to calculate Indirect Bilirubin result due to some parameters are outside reportable range Bilirubin Total 0.3 0.0 - 1.2 mg/dL 03/07/2024 2:31 PM T [facility] Comment:Indocyanine Green (I CG) may cause falsely elevated bilirubin results. Total and direct bilirubin must not be measured from samples containing indocyanine green. False elevation of total bilirubin can be seen in patients with IgG concentrations above 28 g/L. Blood Peripheral blood specimen / Unknown Venipuncture / Unknown 03/07/2024 1:48 PM CDT 03/07/2024 1:57 PM CDT Rosalia Callahan [employer]PER[employer]PERATING LAB BLOOD ORDERABLES Final R esult [facility] [place] [address] * Hepatitis C Virus Antibody (03/07/2024 1:48 PM CDT) [facility] HCVAb. Non Reactive Non Reactive 03/07/2024 3:15 PM CDT [facility] Blood Peripheral blood specimen / Unknown Venipuncture / Unknown 03/07/2024 1:48 PM CDT 03/07/2024 1:57 PM CDT Narrative [facility] - 03/07/2024 3:15 PM CDT Antibody detection in the immunocompromised and immunosuppressed population may be delayed or absent entirely. Therefore serial testing, correlation with other clinical findings, and supplemental testing (if available) should be taken into consideration when interpreting the results. Rosalia Callahan APRN LAB BLOOD ORDERABLES Final R esult [facility] Unless otherwise noted, all lab tests performed by: Division of Pathology and Laboratory Medicine [address] [place] [id number] * Hepatitis B Surface Ag (03/07/2024 1:48 PM CDT) [facility] HBsAg. Non Reactive Non Reactive 03/07/2024 3:14 PM CDT [facility] Blood Peripheral blood specimen / Unknown Venipuncture / Unknown 03/07/2024 1:48 PM CDT 03/07/2024 1:57 PM CDT Rosalia Callahan [employer]PER[employer] LAB BLOOD ORDERABLES Final R esult [facility] Unless otherwise noted, all lab tests performed by: Division of Pathology and Laboratory Medicine [address] [place] [address] * (ABNORMAL) BUN (03/07/2024 1:48 PM CDT) BUN 25(H) 6 - 23 mg/dL 03/07/2024 2 :31 PM CDT [facility] Blood Peripheral blood specimen / Unknown Venipuncture / Unknown 03/07/2024 1:48 PM CDT 03/07/2024 1:57 PM CDT us Rosalia Callahan [employer]PER[employer] LAB BLOOD ORDERABLES Final R esult Performing Organization Address City/[facility]/ZIP Co de Phone Number [address] [place] [address] * (ABNORMAL) ALT (03/07/2024 1:48 PM CDT) ALT 55(H) <=33 U/L 03/07/2024 2:3 1 PM CDT [facility] Blood Peripheral blood specimen / Unknown Venipuncture / Unknown 03/07/2024 1:48 PM CDT 03/07/2024 1:57 PM CDT us Rosalia Callahan [employer]PER[employer] LAB BLOOD ORDERABLES Final R esult Performing Organization Address [facility]/ZIP Co de Phone Number [address] [place] [address] * (ABNORMAL) Aspartate Aminotransferase (03/07/2024 1:48 PM CDT) AST 43(H) <=32 U/L 03/07/2024 2:3 1 PM CDT [facility] Blood Peripheral blood specimen / Unknown Venipuncture / Unknown 03/07/2024 1:48 PM CDT 03/07/2024 1:57 PM CDT us Rosalia Callahan [employer]PER[employer] LAB BLOOD ORDERABLES Final R esult Performing Organization Address City/[facility]/ZIP Co de Phone Number [address] [place] [address] * Magnesium Level (03/07/2024 1:48 PM CDT) Magnesium Level 1.9 1.6 - 2.6 mg/dL 03/07/2024 2:31 PM CDT [facility] Blood Peripheral blood specimen / Unknown Venipuncture / Unknown 03/07/2024 1:48 PM CDT 03/07/2024 1:57 PM CDT Rosalia Callahan APRN LAB BLOOD ORDERABLES Final R esult [facility] [address] [place] [address] * Hemoglobin A1c (03/07/2024 1:48 PM CDT) Pathologist [facility] Hemoglobin A1c 5.4 4.3 - 5.6 % 03/07/2024 2:40 PM CDT [facility] Blood Peripheral blood specimen / Unknown Venipuncture / Unknown 03/07/2024 1:48 PM CDT 03/07/2024 1:57 PM CDT Narrative [facility] - 03/07/2024 2:40 PM CDT HbA1c values >=6.5% are diagnostic of diabetes mellitus. Diagnosis should be confirmed by repeat testing. Therapeutic Action suggested: >8.0% HbA1c; Goal of therapy: <7.0% HbA1c Rosalia Callahan APRN LAB BLOOD ORDERABLES Final R [facility] Unless otherwise noted, all lab tests performed by: Division of Pathology and Laboratory Medicine [address] [place] [id number] * (ABNORMAL) Creatinine (03/07/2024 1:48 PM CDT) Creatinine 1.12(H) 0.51 - 0.95 mg/dL 03/07/2024 2:31 PM CDT [facility] eGFR 54(L) >=60 mL/min/1. 73 sq. m 03/07/2024 2:31 PM CDT [facility] Comment: The eGFRcr is calculated with the 2020 CKD-EPI creatinine equation using creatinine, patient's age, and sex for adults 18 years of age and older. Other factors, especially muscle mass, may affect accuracy and need to be considered. According to the Kidney Disease: Improving Global Outcomes (KDIGO) CKD Work Group 2012 Clinical Practice Guideline, chronic kidney disease (CKD) is defined as the abnormalities of kidney structure or function, present for more than 3 months, with implications for health. CKD should be classified by cause, GFR category, and albuminuria category. KDIGO guidelines provide the following GFR categories. Stage / Description / GFR mL/min/1.73 m2: G1* / Normal or high / >= 90 G2* / Mildly decreased / 60-89 G3a / Mildly to moderately decreased / 45-59 G3b / Moderately to severely decreased / 30-44 G4 / Severely decreased / 15-29 G5 / Kidney failure / <15 *In the absence of evidence of kidney damage, neither G1 nor G2 fulfill criteria for CKD. Blood Peripheral blood specimen / Unknown Venipuncture / Unknown 03/07/2024 1:48 PM CDT 03/07/2024 1:57 PM CDT Rosalia Callahan SUPERINTENDENT [employer]PERATING LAB BLOOD ORDERABLES Final R [facility] Performing Organization Address [facility] Co de Phone Number [address] [place] [address] * Albumin Level (03/07/2024 1:48 PM CDT) Albumin Level 4.1 3.5 - 5.2 gm/dL 03/07/2024 2:31 PM CDT [facility] Blood Peripheral blood specimen / Unknown Venipuncture / Unknown 03/07/2024 1:48 PM CDT 03/07/2024 1:57 PM CDT Rosalia Callahan [employer]PER[employer] LAB BLOOD ORDERABLES Final R esult [address] [place] [address] * (ABNORMAL) Electrolyte Panel (03/07/2024 1:48 PM CDT) Sodium Level 132(L) 136 - 145 mmol/L 03/07/2024 2:31 PM CDT [facility] Potassium Level 4.4 3.4 - 4.5 mmol/L 03/07/2024 2:31 PM CDT [facility] Chloride 98 98 - 107 mmol/L 03/07/2024 2:31 PM CDT [facility] CO2 21(L) 22 - 29 mmol/L 03/07/2024 2:31 PM CDT [facility] Anion Gap 13 4 - 14 mmol/L 03/07/2024 2:31 PM CDT [facility] Blood Peripheral blood specimen / Unknown Venipuncture / Unknown 03/07/2024 1:48 PM CDT 03/07/2024 1:57 PM CDT us Rosalia Callahan [employer]PER[employer]PERATING LAB BLOOD ORDERABLES Final R esult [facility] [address] [place] [address] * OSI PET CT Skull to Mid Thigh (01/15/2024 10:28 AM CDT) Only the most recent of2 resultswithin the time period is included. Narrative Systemgenerated, Documentation - 01/28/2024 10:28 AM CDT Study acquired at another institution. For comparison only. No [facility] originated interpretation requested or available. us Ana Munoz MD IMG OUTSIDE IMAGE ORDERABLES F inal Result * OSI Nuclear Diagnostic Exam (11/23/2023 10:27 AM CDT) Narrative Systemgenerated, Documentation - 01/28/2024 10:27 AM CDT Study acquired at another institution. For comparison only. No [facility] originated interpretation requested or available. us Ana LIMAG OUTSIDE IMAGE ORDERABLES F inal Result * OSI CT Abdomen and Pelvis (11/23/2023 10:27 AM CDT) Only the most recent of2 resultswithin the time period is included. Narrative Systemgenerated, Documentation - 01/28/2024 10:28 AM CDT Study acquired at another institution. For comparison only. No MD Harrison originated interpretation requested or available. us Ana Munoz MD IMG OUTSIDE IMAGE ORDERABLES F inal Result * OSI Interventional (09/30/2023 10:27 AM CDT) Only the most recent of2 resultswithin the time period is included. Narrative Systemgenerated, Documentation - 01/28/2024 10:27 AM CDT Study acquired at another institution. For comparison only. No MD Harrison originated interpretation requested or available. us Ana Munoz MD IMG OUTSIDE IMAGE ORDERABLES F inal Result * OSI US Vascular (07/03/2023 10:27 AM [employer]) Narrative Systemgenerated, Documentation - 01/28/2024 10:27 AM CDT Study acquired at another institution. For comparison only. No MD Harrison originated interpretation requested or available. us Ana Munoz MD IMG OUTSIDE IMAGE ORDERABLES F inal Result * OSI MRI Pelvis (06/17/2023 10:26 AM [employer]) Narrative Systemgenerated, Documentation - 01/28/2024 10:26 AM CDT Study acquired at another institution. For comparison only. No MD Harrison originated interpretation requested or available. us Ana Munoz MD IMG OUTSIDE IMAGE ORDERABLES F inal Result after 06/04/2023 Insurance [facility] MEDIC[facility] ADVANTAGE Care Teams Olive Knocker Relationship Specialty Start Date End Date Ana Munoz MD [address] [place] [phone] [email or web address] PCP - General Internal Medicine 01/22/24 01/31/24 Kaylen Atkins FNP [address] [place] [id number] PCP - External Primary Care Provider Family Practice 01/22/24 Reji Alexandre MD [address] [place] [id number] PCP - External Follow Up A Gynecological Oncology 01/28/24 Mateus Reyes MD [address] [place] [id number] [email or web address] - General Gynecological Oncology 02/01/24 Carleen Cuello, RN [address] [place] [id number] [email or web address] Intake Nurse Navigator Nursing 01/29/24 02/02/24 Haim Man RN [facility] [place] [address] [email or web address] Intake Nurse Navigator Nursing 02/03/24 03/07/24 Diana Joe RN [facility] [place] [address] [email or web address] Treatment Nurse Navigator Nursing 03/08/24
[2024-06-03 19:59] LABS: Specific Gravity 1.007 (1.005-1.030); Sqamous Epithelial <5 /HPF (None Seen); Urine Bacteria None Seen /HPF (<20); Urine Bilirubin NEGATIVE (Negative); Urine Blood 3+ (OVER) (Negative); Urine Clarity Extremely Turbid (Clear); Urine Color Colorless (Yellow); Urine Crystals Unidentified Few /HPF (None Seen); Urine Culture Reflex Order REFLEXED; Urine Glucose NEGATIVE (Negative); Urine Ketones NEGATIVE (Negative); Urine Micro Reflex YN NO BILL MICROSCOPIC; Urine Mucus Slight /HPF (None Seen); Urine Nitrite NEGATIVE (Negative); Urine Protein 1+ (Negative); Urine RBC 21-50 /HPF (None Seen); Urine Urobilinogen Normal (Normal); Urine WBC 20-50 /HPF (<5)
[2024-06-03] MEDS ORDERED: LIDOCAINE VISCOUS 2% 10ML ORAL SOLN ONE (20:10)
[2024-06-03] MEDS ORDERED: LIDOCAINE HCL JELLY 2% 6 ML SYRINGE TOP ONE (20:11)
[2024-06-03 20:13] LABS: Absolute Eosinophils 0.1 K/uL (0-0.5); Absolute Lymphocytes (CBC) 0.6 K/uL (0.7-4.9); Absolute Monocytes 0.2 K/uL (0.1-1.3); Absolute Neutrophil 0.8 K/uL (1.8-8.0); Eosinophils % 3.7 % (0-4.4); Hematocrit 27.5 % (36.0-45.0); Hemoglobin 9.5 g/dL (12.0-15.0); Lymphocytes % 36.4 % (15.3-44.8); MCH 35.6 pg (27.0-35.0); MCHC 34.6 g/dL (32.0-36.0); MCV 102.8 fL (80-100); MPV 7.5 fL (7.6-11.3); Monocytes % 11.7 % (3.3-12.3); Neutrophils % 47.2 % (41.7-73.7); Nucleated Red Blood Cells % 0.1 % (0-0); Platelets 106 thou/uL (152-406); RBC Red Blood Cell Count 2.67 M/uL (3.86-4.86); Red Cell Distribution Width 16.8 % (12.1-15.2)
[2024-06-03 20:14] LABS: Platelet Estimate DECR; White Blood Cell Scan OK (OK)
[2024-06-03 20:15] LABS: Blood Morphology Comment NOT SEEN (NOT SEEN)
[2024-06-03 20:23] LABS: Albumin 2.8 g/dL (3.4-5.0); Albumin/Globulin Ratio 0.7 (1.1-1.8); Anion Gap 9.5 mEq/L (5.0-15.0); Bilirubin Total 0.2 mg/dL (0.2-1.0); Globulin 4.1 g/dL (2.3-3.5); Potassium 3.5 mEq/L (3.5-5.1); Protein, Total 6.9 g/dL (6.4-8.2)
[2024-06-03] MEDS ORDERED: FENTANYL CITR 100 MCG/2 ML ONE (20:56)
[2024-06-03 21:22] LABS: Specific Gravity 1.006 (1.005-1.030); Sqamous Epithelial None Seen /HPF (None Seen); Urine Bacteria <20 /HPF (<20); Urine Bilirubin NEGATIVE (Negative); Urine Blood 3+ (OVER) (Negative); Urine Clarity Turbid (Clear); Urine Color Colorless (Yellow); Urine Culture Reflex Order REFLEXED; Urine Glucose NEGATIVE (Negative); Urine Ketones NEGATIVE (Negative); Urine Micro Reflex YN NO BILL MICROSCOPIC; Urine Mucus Slight /HPF (None Seen); Urine Nitrite NEGATIVE (Negative); Urine Protein 1+ (Negative); Urine RBC 21-50 /HPF (None Seen); Urine Urobilinogen Normal (Normal)
--- NOTE | 2024-06-03 21:24 | ER ---
Nurse's Notes [facility] Name: Christianne Jacobson Age: 68 yrs Sex: Female : 1955 Arrival Date: 06/03/2024 Time: 17:53 Bed 16 Private MD: Diagnosis: Gross hematuria;UTI/ Urinary tract infection, site not specified Presentation: 06/03 18:05 Chief complaint: Patient states: pt had urine test at oncologist this week and was cm10 called that her culture came back positive for pseudomonas and needed to come to the ED. Pt reports that she continues to have dysuria. Last chemo 05/24. Coronavirus screen: Client denies travel out of the [place] in the last 14 days. Ebola Screen: Patient denies travel to an Ebola-affected area in the 21 days before illness onset. No symptoms or risks identified at this time. Initial Sepsis Screen: Does the patient meet any 2 criteria? No. Patient's initial sepsis screen is negative. Does the patient have a suspected source of infection? No. Patient's initial sepsis screen is negative. Risk Assessment: Do you want to hurt yourself or someone else? Patient reports no desire to harm self or others. Onset of symptoms was June 03, 2024. 18:05 Method Of Arrival: Ambulatory cm10 18:05 Acuity: NISH 3 cm10 Triage Assessment: 18:08 General: Appears in no apparent distress. comfortable, Behavior is calm, cooperative. cm10 Neuro: No deficits noted. Level of Consciousness is awake, alert, obeys commands, Oriented to person, place, time, situation, Appropriate for age. Historical: - Allergies: 18:07 PENICILLINS; cm10 - PMHx: 18:07 DVT; Cervical Cancer; Lung Cancer; cm10 - PSHx: 18:07 Cholecystectomy; cm10 - Immunization history:: Adult Immunizations up to date. - Infectious Disease History:: Denies. - Social history:: Smoking status: Patient denies any tobacco usage or history of. Screenin:10 [facility] ED Fall Risk Assessment (Adult) History of falling in the last 3 months, rs5 including since admission No falls in past 3 months (0 pts) Confusion or Disorientation No (0 pts) Intoxicated or Sedated No (0 pts) Impaired Gait No (0 pts) Mobility Assist Device Used No (0 pt) Altered Elimination No (0 pt) Score/Fall Risk Level 0 - 2 = Low Risk Oriented to surroundings, Maintained a safe environment. Abuse screen: Denies threats or abuse. Nutritional screening: No deficits noted. Tuberculosis screening: No symptoms or risk factors identified. 19:50 Exposure risk/Travel Screening: None identified. mt4 Assessment: 18:10 General: Appears in no apparent distress. comfortable, Behavior is calm, cooperative. rs5 18:10 Reassessment: Patient and/or family updated on plan of care and expected duration. Pain rs5 level reassessed. Patient is alert, oriented x 3, equal unlabored respirations, skin warm/dry/pink. 18:10 Pain: Denies pain. Neuro: Level of Consciousness is awake, alert, obeys commands, rs5 Oriented to person, place, time, situation. Cardiovascular: Patient's skin is warm and dry. Respiratory: Airway is patent Respiratory effort is even, unlabored, Respiratory pattern is regular, symmetrical. GI: Abdomen is round non-distended, renal ostomy noted to left lower back, dressing intact Abd is soft and non tender X 4 quads. EENT: No signs and/or symptoms were reported regarding the EENT system. Derm: Skin is intact, Skin is pink, warm \T\ dry. Musculoskeletal: Range of motion: intact in all extremities. 18:10 : Reports burning with urination. rs5 19:50 Reassessment: Patient is alert, oriented x 3, equal unlabored respirations, skin mt4 warm/dry/pink. 19:50 General: Appears in no apparent distress. comfortable, Behavior is cooperative, mt4 agitated. Pain: Complains of pain in back Pain currently is 6 out of 10 on a pain scale. Quality of pain is described as aching, Pain began suddenly, Is intermittent, Alleviated by medications, repositioning, relaxation. Neuro: Level of Consciousness is awake, alert, obeys commands, Oriented to person, place, time, situation, Appropriate for age Driver Education Instructor are equal bilaterally Moves all extremities. Gait is unsteady, Speech is normal, Facial symmetry appears normal. Cardiovascular: Capillary refill < 3 seconds. Respiratory: Airway is patent Respiratory effort is even, unlabored, Respiratory pattern is regular, symmetrical. GI: Abdomen is round non-distended, renal ostomy. : Reports burning with urination, discharge, bloody. Derm: Skin is intact, Skin is pink, warm \T\ dry. Musculoskeletal: Capillary refill < 3 seconds, Range of motion: intact in all extremities. 20:02 Reassessment: Patient refused a straight cath urine. me1 22:00 Reassessment: Patient and/or family updated on plan of care and expected duration. Pain mt4 level reassessed. General: Appears in no apparent distress. comfortable, Behavior is agitated, restless. Pain: Complains of pain in back, right leg and left leg Quality of pain is described as burning, aching. 06/04 02:04 Reassessment: report given to Claudia ROCHE. mt4 02:51 Musculoskeletal: Range of motion: intact in all extremities. mt4 Vital Signs: 06/03 18:05 BP 133 / 72; Pulse 76; Resp 16; Temp 98.3; Pulse Ox 100% on R/A; Weight 77.11 kg; cm10 Height 5 ft. 9 in. ; Pain 6/10; 20:00 BP 117 / 58; Pulse 66; Resp 17; Pulse Ox 100% on R/A; Pain 8/10; mt4 20:05 BP 130 / 71; Pulse 69; Resp 17; Temp 98(O); Pulse Ox 100% on R/A; Pain 6/10; mt4 21:00 BP 122 / 45; Pulse 70; Resp 19; Pulse Ox 100% ; mt4 06/04 00:26 BP 136 / 69; Pulse 20; Resp 70; Pulse Ox 100% on R/A; mt4 01:21 BP 130 / 68; Pulse 73; Resp 15; Pulse Ox 100% on R/A; mt4 06/03 18:05 Body Mass Index 25.10 (77.11 kg, 175.26 cm) cm10 06/03 18:05 Pain Scale: Adult cm10 20:00 Pain Scale: Adult mt4 20:05 Pain Scale: Adult mt4 Lurdes Coma Score: 06/03 19:50 Eye Response: spontaneous(4). Motor Response: obeys commands(6). Verbal Response: mt4 oriented(5). Total: 15. 22:00 Eye Response: spontaneous(4). Motor Response: obeys commands(6). Verbal Response: mt4 oriented(5). Total: 15. ED Course: 17:57 Patient arrived in ED. 3 18:04 Kristopher Mcdermott PA is PHCP. cp 18:04 Kaushik Novak MD is Attending Physician. cp 18:07 Triage completed. cm10 18:07 Arm band placed on right wrist. Patient placed in an exam room, on a stretcher. cm10 18:09 Nando Ponce, RN is Primary Nurse. rs5 18:10 Patient has correct armband on for positive identification. Placed in gown. Bed in low rs5 position. Call light in reach. Side rails up X2. 18:10 No provider procedures requiring assistance completed. rs5 19:30 Inserted saline lock: 22 gauge in left forearm, using aseptic technique. Blood mt4 collected. Flushed with 10 mL NS. 19:38 Urinalysis W/Microscopic: left neprostomy Sent. vk 19:38 Urinalysis W/Microscopic Sent. vk 19:50 No apparent distress. Appears agitated. Resting quietly. Appears upset. patient does mt4 verbalize frustration, takes it out on staff, this nurse continues to verbalize understanding of patients verbalization of frustration and illness. 19:50 Provided Education on: catheter urine collection, IV's labs . Client placed on mt4 continuous cardiac and pulse oximetry monitoring. NIBP monitoring applied. Door closed. Lights dimmed. Assisted to bathroom. 19:50 Patient maintains SpO2 saturation greater than 95% on room air. mt4 21:23 Prince Valiente MD is Hospitalizing Provider. cp 22:00 No apparent distress. Appears restless. mt4 22:00 Pt. is pacing. mt4 22:00 Bed in low position. Call light in reach. Side rails up X 1. Side rails up X2. Client mt4 placed on continuous cardiac and pulse oximetry monitoring. NIBP monitoring applied. Door closed. Lights dimmed. Warm blanket given. Pillow given. Verbal reassurance given. Assisted to bathroom. 22:00 Patient maintains SpO2 saturation greater than 95% on room air. mt4 06/04 01:22 Blood Culture Adult (2) Sent. mt4 02:16 initiated transfer with dionna at [facility] [address]. Renteria, C \T\ 0034. Admin kmf approval given by Dionna N \T\ 0113. Number for nurse to nurse [phone]. numerous calls between Kristopher SMITH and [facility] delayed transfer. 02:53 Patient transferred, IV remains in place. mt4 Administered Medications: 06/03 20:11 Not Given (Physician Discretion): viscous lidocaineliquid (4 %) 5 ml Mucous Membrane cp once; to bedside 20:21 Drug: Lidocaine Mucous Membrane Gel 2 % 1 ea 15 ml Mucous Membrane once Volume: 15 ml; mt4 Route: Mucous Membrane; 06/04 02:00 Follow up: Response: No adverse reaction mt4 06/03 21:08 Drug: fentaNYL (PF) IVP 25 mcg IVP once Route: IVP; Site: left forearm; mt4 21:31 Drug: Cefepime IVPB 1 grams IVPB at 200 ml/hr once over 30 mins; (mix in NS 100 mL) mt4 Route: IVPB; Rate: 200 ml/hr; Infused Over: 30 mins; Site: left forearm; 22:18 Follow up: Response: No adverse reaction; IV Status: Completed infusion; IV Intake: mt4 100ml 06/04 00:26 Drug: fentaNYL (PF) IVP 25 mcg IVP once Route: IVP; Site: left forearm; mt4 02:48 Follow up: Response: No adverse reaction mt4 01:30 Drug: vancoMYCIN IVPB 1 grams IVPB once over 2 hrs Route: IVPB; Infused Over: 2 hrs; mt4 Site: left forearm; 02:47 Follow up: Response: No adverse reaction; IV Status: Completed infusion; IV Intake: mt4 250ml 01:30 Drug: Ativan IVP 1 mg IVP once Route: IVP; Site: left forearm; mt4 02:47 Follow up: Response: No adverse reaction mt4 Medication: 06/03 19:12 VIS not applicable for this client. rs5 Intake: 22:18 IV: 100ml; Total: 100ml. mt4 06/04 02:47 IV: 250ml; Total: 350ml. mt4 Outcome: 06/03 21:24 Decision to Hospitalize by Provider. cp 21:30 ER care complete, transfer ordered by . cp 06/04 02:53 [facility] [facility] [facility] [place] Condition: stable Instructed on the need for admit, 02:55 Patient left the ED. mt4 Signatures: Dispatcher [employer] EDMS Kristopher Mcdermott PA PA cp Sotelo, Ricky, RN RN rs5 Elizabeth Sharma RN RN cm10 Blanka Cates RN RN nm1 Lisa Betancur [facility] Jannie Zuniga 3 Veronica Dunbar Molinec, RN RN mt4 Corrections: (The following items were deleted from the chart) 06/03 18:09 18:05 Chief complaint: Patient states: pt had urine test at pcp this week and was cm10 called that her culture came back positive for pseudomonas and needed to come to the ED. Pt reports that she continues to have dysuria. cm10 19:13 18:10 General: Appears in no apparent distress. comfortable, Behavior is calm, rs5 cooperative, rs5 06/04 02:49 02:16 initiated transfer with dionna at [facility] \T\2142. Dr. Vásquez, T accepted \T\ 2211. [facility] Dionna N admin approval \T\ 221 . [facility] to transfer pt. Nurse to nurse report -. [phone] [facility] 02:53 06/03 22:44 In radiology for Abdomen Pelvis W/Wo Con+CT.RAD.BRZ. EDWI mt4
--- NOTE | 2024-06-03 21:24 | EDPHYS ---
Physician Documentation [facility] Name: Christianne Jacobson Age: 68 yrs Sex: Female : 1955 Arrival Date: 06/03/2024 Time: 17:53 Bed 16 Private MD: ED Physician Kaushik Novak HPI: 06/03 18:20 This 68 yrs old Female presents to ER via Ambulatory with complaints of Abnormal Lab cp Results. 18:20 Patient is a 68-year-old female with past medical history significant for metastatic cp cervical cancer who is reports urinary symptoms to include hematuria and dysuria for the past week. She reports she had a urine sample that was taken by her primary oncologist this past week. Reports she was told that the samples culture grew Pseudomonas bacteria and that she needed to proceed to the emergency department for admission for IV antibiotics. Historical: - Allergies: 18:07 PENICILLINS; cm10 - PMHx: 18:07 DVT; Cervical Cancer; Lung Cancer; cm10 - PSHx: 18:07 Cholecystectomy; cm10 - Immunization history:: Adult Immunizations up to date. - Infectious Disease History:: Denies. - Social history:: Smoking status: Patient denies any tobacco usage or history of. ROS: 18:20 : Positive for urinary symptoms, hematuria, burning with urination, Negative for cp vaginal bleeding, 18:20 Eyes: Negative for injury, pain, redness, and discharge, cp 18:20 Constitutional: Negative for body aches, chills, fever, poor PO intake, 18:20 Respiratory: Negative for cough, shortness of breath, wheezing, 18:20 Abdomen/GI: Negative for abdominal pain, vomiting, diarrhea, constipation, 18:20 Neuro: Negative for altered mental status, dizziness, headache, weakness, 18:20 All other systems are negative, cp Exam: 18:25 Constitutional: The patient appears in no acute distress, alert, awake, cp non-diaphoretic, non-toxic, well developed, well nourished, uncomfortable, 18:25 Head/Face: Normocephalic, atraumatic. cp 18:25 Chest/axilla: Inspection: normal, 18:25 Cardiovascular: Rate: normal, 18:25 Respiratory: the patient does not display signs of respiratory distress, Respirations: normal, no use of accessory muscles, no retractions, labored breathing, is not present, Breath sounds: are clear throughout, no decreased breath sounds, no stridor, no wheezing, 18:25 Abdomen/GI: Inspection: abdomen appears normal, Palpation: abdomen is soft and non-tender, in all quadrants, 18:25 Back: CVA tenderness, is absent, 18:25 Neuro: Orientation: to person, place \T\ time. Mentation: is normal, Vital Signs: 18:05 BP 133 / 72; Pulse 76; Resp 16; Temp 98.3; Pulse Ox 100% on R/A; Weight 77.11 kg; cm10 Height 5 ft. 9 in. ; Pain 6/10; 20:00 BP 117 / 58; Pulse 66; Resp 17; Pulse Ox 100% on R/A; Pain 8/10; mt4 20:05 BP 130 / 71; Pulse 69; Resp 17; Temp 98(O); Pulse Ox 100% on R/A; Pain 6/10; mt4 21:00 BP 122 / 45; Pulse 70; Resp 19; Pulse Ox 100% ; mt4 06/04 00:26 BP 136 / 69; Pulse 20; Resp 70; Pulse Ox 100% on R/A; mt4 01:21 BP 130 / 68; Pulse 73; Resp 15; Pulse Ox 100% on R/A; mt4 06/03 18:05 Body Mass Index 25.10 (77.11 kg, 175.26 cm) cm10 06/03 18:05 Pain Scale: Adult cm10 20:00 Pain Scale: Adult mt4 20:05 Pain Scale: Adult mt4 Lurdes Coma Score: 06/03 19:50 Eye Response: spontaneous(4). Motor Response: obeys commands(6). Verbal Response: mt4 oriented(5). Total: 15. 22:00 Eye Response: spontaneous(4). Motor Response: obeys commands(6). Verbal Response: mt4 oriented(5). Total: 15. MDM: 18:11 Medical Screening Exam initiated cp 21:35 Data reviewed: vital signs, nurses notes, lab test result(s). cp 21:35 Management of patient was discussed with the following: Hospitalist: DR Valiente who cp sees patient in ED and requests transfer for urology consult. 21:35 Differential diagnosis: UTI, sepsis, pyelonephritis. I considered the following cp discharge prescriptions or medication management in the emergency department Medications were administered in the Emergency Department. See AUG. 06/04 00:35 ED course: consult with hospitalist, DR Renteria, who will accept patient as transfer. 06/03 18:12 Order name: Urinalysis W/Microscopic; Complete Time: 23:32 06/03 19:01 Order name: Urinalysis W/Microscopic: left neprostomy; Complete Time: 20:04 06/03 20:05 Interpretation: Normal except: [facility] Extremely Turbid; UBLD 3+ (OVER); UPROT 1+; UESTR cp 250; UWBC 20-50; URBC 21-50. 06/03 19:01 Order name: CBC with Diff; Complete Time: 20:21 06/03 20:21 Interpretation: Normal except: WBC 1.70; RBC 2.67; HGB 9.5; HCT 27.5; MCV 102.8; MCH cp 35.6; PLT 106; RDW 16.8; MPV 7.5; NEUT A 0.8; LYMA 0.6. 06/03 19:01 Order name: CMP; Complete Time: 20:24 06/03 20:24 Interpretation: Normal except: CRE 1.30; GFR 45; ALB 2.8; GLOB 4.1; A/G 0.7. 06/03 19:01 Order name: Lipase; Complete Time: 20:24 06/03 19:01 Order name: Lactate w/ 2H reflex if indic.; Complete Time: 20:24 06/03 20:04 Order name: Urine Culture EDID 06/03 20:15 Order name: CBC Smear Scan; Complete Time: 20:21 EDID 06/03 23:54 Order name: Lactate w/ 2H reflex if indic. EDMS 06/03 23:54 Order name: Magnesium EDMS 06/03 23:54 Order name: Phosphorus EDMS 06/03 23:54 Order name: Urinalysis w/ reflexes EDMS 06/03 23:54 Order name: Basic Metabolic Panel EDID 06/03 23:54 Order name: Comprehensive Metabolic Panel EDMS 06/03 23:54 Order name: Comprehensive Metabolic Panel EDID 06/04 00:35 Order name: Blood Culture Adult (2) cp 06/03 21:52 Order name: CT Abd/Pelvis- W/WO Contrast cp 06/04 00:02 Interpretation: Reviewed. cp 06/03 19:01 Order name: IV Saline Lock; Complete Time: 19:58 cp 06/03 19:01 Order name: Labs collected and sent; Complete Time: 19:59 cp 06/03 19:15 Order name: Suzette; Complete Time: 21:08 cp Administered Medications: 06/03 20:11 Not Given (Physician Discretion): viscous lidocaineliquid (4 %) 5 ml Mucous Membrane cp once; to bedside 20:21 Drug: Lidocaine Mucous Membrane Gel 2 % 1 ea 15 ml Mucous Membrane once Volume: 15 ml; mt4 Route: Mucous Membrane; 06/04 02:00 Follow up: Response: No adverse reaction mt4 06/03 21:08 Drug: fentaNYL (PF) IVP 25 mcg IVP once Route: IVP; Site: left forearm; mt4 21:31 Drug: Cefepime IVPB 1 grams IVPB at 200 ml/hr once over 30 mins; (mix in NS 100 mL) mt4 Route: IVPB; Rate: 200 ml/hr; Infused Over: 30 mins; Site: left forearm; 22:18 Follow up: Response: No adverse reaction; IV Status: Completed infusion; IV Intake: mt4 100ml 06/04 00:26 Drug: fentaNYL (PF) IVP 25 mcg IVP once Route: IVP; Site: left forearm; mt4 02:48 Follow up: Response: No adverse reaction mt4 01:30 Drug: vancoMYCIN IVPB 1 grams IVPB once over 2 hrs Route: IVPB; Infused Over: 2 hrs; mt4 Site: left forearm; 02:47 Follow up: Response: No adverse reaction; IV Status: Completed infusion; IV Intake: mt4 250ml 01:30 Drug: Ativan IVP 1 mg IVP once Route: IVP; Site: left forearm; mt4 02:47 Follow up: Response: No adverse reaction mt4 Disposition Summary: 06/03/24 21:30 Transfer Ordered Notes: Transfer Location: [facility] cp Reason: Higher level of care cp Condition: Stable(06/03/24 21:30) cp Problem: new(06/03/24 21:30) cp Symptoms: have improved(06/03/24 21:30) cp Accepting Physician: DR Renteria(06/04/24 02:55) mt4 Diagnosis - Gross hematuria cp - UTI/ Urinary tract infection, site not specified(06/03/24 21:30) cp Forms: - Medication Reconciliation Form cp - SBAR form cp Signatures: Dispatcher [employer] EDMS Kristopher Mcdermott PA PA cp Elizabeth Sharma, RN RN cm10 Garrison Sim RN RN mt4 Corrections: (The following items were deleted from the chart) 06/03 21:29 21:24 Inpatient Admission cp cp 21:29 21:24 Steffanie Marko cp cp 21:29 21:24 Telemetry/MedSurg (Inpatient) cp cp 21:29 21:24 Stable cp cp 21:29 21:24 new cp cp 21:29 21:24 have improved cp cp 21:29 21:24 Standard cp cp 21:29 21:24 cp cp 21:29 21:24 UTI/ Urinary tract infection, site not specified cp cp 21:53 21:53 Abdomen Pelvis W/Wo Con+CT.RAD.BRZ ordered. EDMS EDMS 06/04 00:07 06/03 23:54 Basic Metabolic Panel ordered. EDMS EDMS 06/04 00:39 06/03 21:30 doctor cp cp 06/04 02:55 00:39 DR Renteria cp mt4
[2024-06-03] MEDS ORDERED: NA CHLORIDE 0.9% 100 ML ONE (21:26)
[2024-06-03] MEDS ORDERED: CEFEPIME 1 GM/VIAL ONE (21:26)
[2024-06-03] MEDS ORDERED: NA CHLORIDE 0.9% 1,000 ML IV SCH (23:45)
[2024-06-03] MEDS ORDERED: ONDANSETRON 4 MG/2 ML VIAL IV PRN (23:50)
--- NOTE | 2024-06-03 23:50 | RAD REPORT ---
CLINICAL HISTORY: gross hematuria. COMPARISON: CT abdomen/pelvis from November 21, 2022. TECHNIQUE: CT of the abdomen and pelvis was performed before and after intravenous administration of iodinated contrast. Oral contrast was not administered. Axial, coronal, and sagittal soft tissue window reconstructions were created and sent to PACS. This exam was performed according to our departmental dose-optimization program, which includes autom ated exposure control, adjustment of the mA and/or kV according to patient size and/or use of iterative reconstruction technique. FINDINGS: Thoracic: CT evidence of anemia. Hepatobiliary: No concerning hepatic lesion identified. The portal veins are patent. The gallbladder is surgically absent. No biliary ductal dilatation. Pancreas: Unremarkable. Spleen: Unremarkable. Gastrointestinal: Tiny sliding-type hiatal hernia. No evidence of bowel obstruction or perienteric in flammation. The appendix is nonvisualized. Moderate to large dual burden in the right colon. Small stool burden in the rest of the colon. Adrenals: No abnormality identified in either adrenal gland. Renal: Well-positioned left sided percutaneous nephrostomy tube. Mild left renal atrophy. No concerni ng parenchymal lesion in either kidney. No hydronephrosis or urolithiasis. Bladder/Reproductive: Moderate circumferential wall thickening of the underdistended urinary bladder. Vascular/Lymphatics: No lymphadenopathy identified by CT size criteria. Abdominal aorta is normal in caliber. Musculoskeletal: No concerning osseous lesion identified. Demineralized appearance of the bones. Suba cute versus chronic osseous irregularity of the left pubic body. Chronic moderate anterior compression deformity of the T12 vertebral body. Fluid / peritoneum: No significant free fluid. No free intraperitoneal air identified. IMPRESSION 1. Moderate urinary bladder wall thickening concerning for cyst tightness. 2. Well-positioned left percutaneous nephrostomy tube, with no hydronephrosis. 3. Moderate to large stool burden in the right colon. Electronically signed by: Ankita Molina MD 06/03/2024 11:30 PM [facility] Due to temporary technical issues with the PACS/Easy Bill Online reporting system, reports are being luke d by the in-house radiologist without review as a courtesy to ensure prompt reporting the interpreting radiologist is fully responsible for the content of the report. Transcribed Date/Time: 06/03/2024 11:50 PM
[2024-06-03] MEDS ORDERED: Meropenem 1,000 MG in NA CHLORIDE 0.9% 100 ML IV SCH (23:55)
--- NOTE | 2024-06-03 23:55 | P.HP ---
Certification for Inpatient Patient admitted to: Inpatient With expected LOS: >2 Midnights Practitioner: I am a practitioner with admitting privileges, knowledge of patient current condition, hospital course, and medical plan of care. Services: Services provided to patient in accordance with Admission requirements found in Title 42 Section 412.3 of the Code of Federal Regulations Patient History Date of Service: 06/03/24 Reason for admission: Complicated UTI History of Present Illness: Patient is a 68-year-old female with a past medical history of cervical cancer with lung metastasis, currently on chemotherapy. She also has a history of hydronephrosis status post percutaneous tube placement. She presented to the ER complaining of dysuria. Urine analysis obtained outpatient yielded Pseudomonas. Her oncologist referred her here for hospitalization. Patient is pancytopenic. Additional during my evaluation, patient also complained of gross hematuria ongoing for the past week. She is on apixaban for chronic lower extremity DVTs. Initial workup included CBC which revealed pancytopenia. Allergies Penicillins Allergy (Unknown, Verified 11/21/22 16:28) Itching/Hives/Rash Physical Examination - Physical Exam General: Other (Frail) HEENT: Atraumatic, Normocephalic Respiratory: Clear to auscultation bilaterally, Normal air movement Cardiovascular: No edema, Normal pulses, Regular rate/rhythm, Normal S1 S2, Other (Chemo-Port in place) Neurological: Normal speech Urinary: Other (Suprapubic tenderness. Left nephrostomy tube) - Studies Laboratory Data (last 24 hrs) 06/03/24 06/03/24 19:52 19:52 WBC 1.70 L Hgb 9.5 L Hct 27.5 L Plt Count 106 L Sodium 137 Potassium 3.5 BUN 10 Creatinine 1.30 H Glucose 101 Total Bilirubin 0.2 AST 26 ALT 18 Alkaline Phosphatase 72 Lipase 45 Assessment and Plan - Problems (Diagnosis) (1) Complicated UTI (urinary tract infection) Current Visit: Yes Status: Acute (2) Hematuria Current Visit: Yes Status: Acute (3) Pancytopenia Current Visit: Yes Status: Acute (4) Primary cervical cancer with metastasis to other site Current Visit: Yes Status: Acute (5) Generalized weakness Current Visit: Yes Status: Acute - Plan Assessment 68-year-old female being admitted for Pseudomonas UTI. She has been experiencing dysuria and hematuria at home. Initial workup significant for pancytopenia. Patient has been started on cefepime by ER. Urinary tract infectioncystitis Gross hematuria Pancytopenia Chronic lower extremity DVTs on apixaban Metastatic cervical cancer, with metastasis to the lung Currently on chemotherapy Currently anticoagulated Plan: Admit inpatient telemetry Start patient on meropenem and normal saline infusion Obtain urine culture from percutaneous nephrostomy tube, and clean-catch Follow CT abdomen and pelvis to rule out urinary tract abnormalities Hold Eliquis Trend CBC SCD for DVT prophylaxis Patient is full Urologist at [facility] was reached. He declined consult as patient did not have gross hematuria. - Advance Directives Does patient have a Living Will: No Does patient have a Durable POA for Healthcare: No
[2024-06-04] MEDS ORDERED: LACTULOSE 20 GM/30 ML UCUP PO ONE (00:02)
[2024-06-04] MEDS ORDERED: FENTANYL CITR 100 MCG/2 ML ONE (00:19)
[2024-06-04] MEDS ORDERED: NA CHLORIDE 0.9% 250 ML ONE (00:51)
[2024-06-04] MEDS ORDERED: VANCOMYCIN 1 GM/VIAL ONE (00:51)
[2024-06-04 01:08] LABS: Magnesium 1.9 mg/dL (1.6-2.4); Phosphorus 2.3 mg/dL (2.5-4.9)
[2024-06-04] MEDS ORDERED: LORazepam 2 MG/ML VIAL ONE (01:09)
[2024-06-04 03:13] VITALS: O2SAT 100
[2024-06-04 03:17] VITALS: TEMP 98
[2024-06-04 03:22] VITALS: BP 130/68
[2024-06-04] MEDS ORDERED: Meropenem 1,000 MG in NA CHLORIDE 0.9% 100 ML IV SCH ×2 (09:00→09:30)
== END 2024-06-04 02:55 | disposition short-term general hospital (02) | DRG 690 ==
LOC: ER 17:53 → ERHOLD 23:50
PROVIDERS: ADMIT Internal Medicine; ATTEND Internal Medicine
DX: N30.01 Acute cystitis with hematuria (principal); C78.00 Secondary malignant neoplasm of unspecified lung; D61.818 Other pancytopenia; I82.509 Chronic embolism and thrombosis of unspecified deep veins of unspecified lower extremity; C53.9 Malignant neoplasm of cervix uteri, unspecified; B96.5 Pseudomonas (aeruginosa) (mallei) (pseudomallei) as the cause of diseases classified elsewhere; R53.1 Weakness; Z79.01 Long term (current) use of anticoagulants
CPT/HCPCS: 36415; 74178; 80053; 81001; 83605; 83690; 83735; 84100; 85025; 87040; 87086; 87088; 96365; 96367; 96375; 99285; J0692; J3010; J7050; Q9967